=== PATIENT | female | born 1960 | race Caucasian/White ===

== ENCOUNTER → 2019-09-29 10:56 | Outpatient (BNVA) | payer BC, SELFPAY | PROVIDERS: Family Provider Nurse Practitioner; PCP Nurse Practitioner; Visit Provider Nurse Practitioner Family | DX: R53.83 Other fatigue (principal); M51.34 Other intervertebral disc degeneration, thoracic region; M50.30 Other cervical disc degeneration, unspecified cervical region; M51.9 Unspecified thoracic, thoracolumbar and lumbosacral intervertebral disc disorder; H53.8 Other visual disturbances; H53.9 Unspecified visual disturbance; M54.9 Dorsalgia, unspecified | CPT/HCPCS: 81001; 84443 ==

== ENCOUNTER 2019-10-01 12:19 | Outpatient (CLI) | payer BC, SELFPAY ==
--- NOTE | 2019-10-01 12:25 | XRR_ITS ---
PROCEDURE INFORMATION: Exam: XR Cervical Spine, 2 or 3 Views Exam date and time: 10/01/2019 12:59 PM Age: 59 years old Clinical indication: Neck pain and other: Decreased rom; Additional info: Neck pain and decreased rom. Pain between shoulders TECHNIQUE: Imaging protocol: XR of the cervical spine, 2 or 3 views. COMPARISON: No relevant prior studies available. FINDINGS: Vertebrae: Normal. No acute fracture. Normal alignment. The examination is negative for instability with flexion and extension Soft tissues: Unremarkable. XR/XR cervical spine fl/ex [id number] IMPRESSION: No acute findings. Negative for instability with flexion and extension
--- NOTE | 2019-10-01 12:25 | XRR_ITS ---
PROCEDURE INFORMATION: Exam: XR Lumbosacral Spine Complete with Flexion/Extension, 6 or More Views Exam date and time: 10/01/2019 1:10 PM Age: 59 years old Clinical indication: Low back pain; Additional info: Lumbar back pain TECHNIQUE: Imaging protocol: XR of the lumbosacral spine with flexion/extension, 6 or more views. COMPARISON: No relevant prior studies available. FINDINGS: Vertebrae: Normal. No acute fracture. Normal alignment. Negative for instability with flexion and extension maneuvers Soft tissues: Unremarkable. XR/XR lumbar spine 6V w f/e [id number] IMPRESSION: No acute findings. Negative for instability with flexion and extension
--- NOTE | 2019-10-01 12:25 | XRR_ITS ---
PROCEDURE INFORMATION: Exam: XR Thoracic Spine, 3 Views Exam date and time: 10/01/2019 1:14 PM Age: 59 years old Clinical indication: Pain in thoracic spine; Additional info: Thoracic back pain. Neck pain and between shoulders. TECHNIQUE: Imaging protocol: XR of the thoracic spine, 3 views. COMPARISON: No relevant prior studies available. FINDINGS: Vertebrae: Normal. No acute fracture. Normal alignment. Soft tissues: Unremarkable. XR/XR thoracic spine 3V* [id number] IMPRESSION: No acute findings.
== END 2019-10-01 12:20 | disposition home or self-care (01) ==
PROVIDERS: PCP Nurse Practitioner Family; Visit Provider Nurse Practitioner Family
DX: M54.9 Dorsalgia, unspecified (principal)
CPT/HCPCS: 72040; 72072; 72114

== ENCOUNTER 2019-11-26 06:00 | Outpatient (RCR) | payer BC, SELFPAY | END 2019-12-08 23:59 | disposition home or self-care (01) | LOC: WPT 06:00 | PROVIDERS: PCP Physician Assistant Medical; Referring Provider Nurse Practitioner Family; Visit Provider Nurse Practitioner Family | DX: M54.16 Radiculopathy, lumbar region (principal) | CPT/HCPCS: 97110; 97140; 97161 ==

== ENCOUNTER 2019-12-09 06:00 | Outpatient (RCR) | payer BC, SELFPAY | END 2020-01-07 23:59 | disposition home or self-care (01) | LOC: WPT 06:00 | PROVIDERS: PCP Physician Assistant Medical; Referring Provider Nurse Practitioner Family; Visit Provider Nurse Practitioner Family | DX: M54.16 Radiculopathy, lumbar region (principal) | CPT/HCPCS: 97110 ==

== ENCOUNTER 2024-05-14 10:00 | Outpatient (CLI) | payer OTHER, SELFPAY ==
--- NOTE | 2024-05-14 10:00 | MM_ITS ---
WS: [id number] Bilateral screening 3D tomosynthesis digital mammogram, 05/14/2024 10:06 AM Clinical Data: SCREENING Comparison: None. Findings: No spiculated masses or clustered calcifications are seen. There are no secondary signs of carcinoma. MM/MM scr BI tomosynthesis [id number] Impression: Negative bilateral mammogram with no prior exam for review. Recommend annual screening mammograms. BIRADS: 1 - Negative. FOLLOW UP: 1 Year Follow-up DENSITY: There are scattered areas of fibroglandular density. The CAD aircraft delivery checker was used
== END 2024-05-14 10:01 | disposition home or self-care (01) ==
LOC: MOBLMAM 10:02
PROVIDERS: PCP Nurse Practitioner; Visit Provider Nurse Practitioner
DX: Z12.31 Encounter for screening mammogram for malignant neoplasm of breast (principal); R92.323 Mammographic fibroglandular density, bilateral breasts
CPT/HCPCS: 77063; 77067

== ENCOUNTER 2024-11-04 08:30 | Outpatient (CLI) | payer OTHER, SELFPAY ==
--- NOTE | 2024-11-04 08:30 | CT_ITS ---
WS: [id number] CT chest wo con [id number] HISTORY: S22.42XA - Multiple fractures of ribs, left side, initial... TECHNIQUE: Axial imaging performed through the thorax. Coronal and sagittal reformats are submitted. All CT scans at [facility] use at least one of these dose optimization techniques: automated exposure control; mA and/or kV adjustment per patient size (includes targeted exams where dose is matched to clinical indication); or iterative reconstruction. CONTRAST: None DLP: 293.83 mGy.cm COMPARISON: None available. Lungs and central airway: Linear subsegmental atelectasis RIGHT lower lobe. Thin bandlike areas of atelectasis. No pulmonary contusion or pneumothorax. 2 mm micronodule LEFT lower lobe, image 33 series 5. No endobronchial lesions. No mass or pneumonia. Pleura: Mild pleural thickening along the posterior inferior thorax. Tiny amount of air encased within the fluid. This could potentially represent a contained tiny pneumothorax or tiny pulmonary contusion/laceration. Heart and pericardium: Normal size heart with no pericardial effusion. Mediastinum and nicolle: Small mediastinal and hilar lymph nodes. No pathologically enlarged lymph nodes. No axillary lymph nodes. Vessels: Normal size aortic and pulmonary artery. No coronary artery calcifications. Chest wall and lower neck: No soft tissue masses. Upper abdomen: Small hiatal hernia. Numerous scattered areas of decreased attenuation throughout the liver. These range in size from a few millimeters to 11 mm. The largest is in the inferior RIGHT lobe of the liver. Spleen is normal size. No adrenal mass. Visualized pancreas is normal. Normal gallbladder. Osseous structures: Left-sided rib fractures: Lateral eighth through 11th ribs. Nondisplaced fractures partially healed. Additional posterior medial fractures involving the ninth through 11th and possibly the 12th ribs. Partially healed without displacement. Nondisplaced fracture with partial healing involving LEFT transverse process of T11. Possible fracture involving LEFT L1 transverse process. Additional nondisplaced fracture involving LEFT L2 transverse process. CT/CT chest wo con [id number] IMPRESSION: 1. Small amount of pleural thickening along the posterior inferior LEFT thorax . There is a very small amount of air contained within the pleural thickening w hich could potentially represent a tiny pneumothorax or contusion laceration of the lung. There is no large pneumothorax. 2. Left-sided rib fractures including the lateral 8th through 11th ribs and th e posterior medial 9th through 11th ribs and possibly the 12th rib. By definiti on this does represent a flail chest. There is no displacement of the ribs. Michael e of these rib fractures demonstrate partial healing. 3. Nondisplaced fractures LEFT transverse process of T11, L2 and possibly L1.
== END 2024-11-04 08:31 | disposition home or self-care (01) ==
LOC: RAD 08:30
PROVIDERS: PCP Family Medicine; Visit Provider Family Medicine
DX: S22.42XA Multiple fractures of ribs, left side, initial encounter for closed fracture (principal); X58.XXXA Exposure to other specified factors, initial encounter
CPT/HCPCS: 71250

== ENCOUNTER → 2024-12-24 16:15 | Outpatient (BNVA) | payer OTHER, SELFPAY | PROVIDERS: PCP Family Medicine; Visit Provider Nurse Practitioner Family | DX: S62.511A Displaced fracture of proximal phalanx of right thumb, initial encounter for closed fracture (principal); X58.XXXA Exposure to other specified factors, initial encounter | CPT/HCPCS: 73140 ==

== ENCOUNTER → 2024-12-30 15:32 | Outpatient (BNVA) | payer OTHER, SELFPAY | PROVIDERS: PCP Family Medicine; Visit Provider Student in an Organized Health Care Education/Training Program | DX: S62.511A Displaced fracture of proximal phalanx of right thumb, initial encounter for closed fracture (principal); S67.01XA Crushing injury of right thumb, initial encounter; W23.0XXA Caught, crushed, jammed, or pinched between moving objects, initial encounter | CPT/HCPCS: 73130 ==

== ENCOUNTER 2025-01-01 08:44 | Day surgery (SDC) | payer OTHER, SELFPAY ==
[2025-01-01] VITALS (10 sets, daily range): BP systolic 117–144; BP diastolic 66–99; PULSE 57–74; RESP 16; TEMP 36.1–36.6; O2SAT 96–99; BMI 22.8
[2025-01-01] MEDS: acetaminophen 1,000 MG/100 ML PIGGYBACK 400 MG IV (09:27)
--- NOTE | 2025-01-01 09:31 | W.PM.OPSUD ---
Surgery/Procedure H&P Update DATE OF PROCEDURE: January 01, 2025 DATE H&P PERFORMED: 12/30/24 H&P UPDATE INFORMATION: I have reviewed H&P completed within last 30 days, I have examined patient prior to procedure and No changes to prior documentation PREOP DIAGNOSIS: Displaced and angulated right thumb proximal phalanx fracture PRIMARY INDICATION FOR PROCEDURE: Displaced and angulated right thumb proximal phalanx fracture PLANNED PROCEDURE: Operation Date: 01/01/25 11:05 Proposed Procedures p RIGHT Thumb Proximal PhalanxClosed Reduction vs Open Reduction Internal FIxation(Right) - Hal Ybarra DO s RIGHT THumb Phalanx Percutaneous Pinning Thumb(Right) - Hal Ybarra DO
--- NOTE | 2025-01-01 09:40 | ANES.PREANE2 ---
Pre-Anesthetic Assessment Height/Weight: Height 1.73 m Weight 68.039 kg Temp Pulse Resp BP Pulse Ox O2 Del Method 97 F L 57 L 16 122/67 99 Room Air 01/01/25 09:04 01/01/25 09:04 01/01/25 09:04 01/01/25 09:04 01/01/25 09:04 01/01/25 09:04 Preop Diagnosis: Displaced and angulated right thumb proximal phalanx fracture Operation Date: 01/01/25 11:05 Proposed Procedures p RIGHT Thumb Proximal PhalanxClosed Reduction vs Open Reduction Internal FIxation(Right) - Hal Ybarra DO s RIGHT THumb Phalanx Percutaneous Pinning Thumb(Right) - Hal Ybarra DO Familial anesthetic complications: None Was Beta Nick taken within 24 hours: N/A Was Clonidine taken within 24 hours: N/A Last intake: Intake Last Liquid Date 12/31/24 Last Liquid Time 11:30 Last Solid Date 12/31/24 Last Solid Time 11:30 Social No alcohol and No tobacco Exam alert, oriented x 3, clear to auscultation bilaterally and regular rate & rhythm Airway Mallampati: Class I Dentition: false Anesthetic Plan ASA status: 1 Anesthesia: General Risk of > 500 ml blood loss (7ml/kg in children): No Medications/Allergies Home Medications ?Medication ?Instructions ?Recorded ?Confirmed ?Last Taken ?Type No Known Home Medications 11/06/24 01/01/25 Unknown History Allergies Allergy/AdvReac Type Severity Reaction Status Date / Time No Known Allergies Allergy Verified 01/01/25 08:59 Current Medications Generic Name Dose Route Start Last Admin Trade Name Dennisq PRN Reason Stop Dose Admin Sodium Chloride 1,000 mls @ 30 mls/hr 01/01/25 09:00 01/01/25 09:17 Sodium Chloride 0.9% IV 01/02/25 08:59 30 mls/hr .Q24H JOSHUA Administration PFSH Anesthesia Medical History Closed displaced fracture of proximal phalanx of right thumb, initial encounter Crushing injury of right thumb, initial encounter Blurred vision, bilateral Unilateral visual loss Thoracic degenerative disc disease Lumbar disc disease DDD (degenerative disc disease), cervical Environmental and seasonal allergies Social History Smoking and tobacco/nicotine status: former use of tobacco/nicotine Alcohol intake: never Substance/Drug Use: never
[2025-01-01] MEDS: ceFAZolin 2,000 MG in sodium chloride 0.9% (plus) 50 ML 100 MG IV (10:12)
[2025-01-01] MEDS: ROPivacaine 0.5% SDV 30 mL 15 MG INJECTION (10:56)
--- NOTE | 2025-01-01 11:56 | P.BOP_ITS ---
Date of Procedure: 01/01/2025 Surgeon: Hal Ybarra DO Medicaid Eligibility Specialist(s): None Procedure(s) performed: Right thumb proximal phalanx open reduction internal fixation Findings of the procedure(s): Underwent procedure as planned without issues or complications Estimated blood loss: 5 mL Specimen(s) removed: None Post-operative diagnosis: Right thumb proximal phalanx fracture displaced and angulated
--- NOTE | 2025-01-01 11:57 | P.OP_ITS ---
Operative Report Date of procedure: January 01, 2025 Pre-op diagnosis: Right thumb proximal phalanx fracture displaced and angulated Post-op diagnosis: Same Post-op findings: See operative report narrative Procedure done: Right thumb proximal phalanx open reduction internal fixation Implants: Arthrex 1.6 T locking plate with a combination of locking and nonlocking screws Surgeon: Hal Ybarra DO Professional Bondsman: None Anesthesia: General and Local Estimated blood loss: 5 mL 67 minutes IV fluids: 1100 mL Urine output: None Complications: None Findings: See operative report narrative Condition: stable Disposition: same day Brief History: Patient at this point in time seen evaluated in the outpatient setting has a displaced right thumb proximal phalanx fracture that was angulated displaced significant stiffness of the joints of the IP and MP joints of the right thumb this fracture is roughly 3 to 4 weeks out. At this point in time we talked about her treatment options in detail she originally had delayed her care today as she thought this would get better on its own at this standpoint talked about her options in detail as far as nonoperative operative invention through shared decision making elects to proceed with surgical intervention for a right thumb proximal phalanx closed reduction percutaneous pinning versus open reduction internal fixation. Patient understands risk benefits complication alternatives surgical nonsurgical treatment options. Understand risk of surgery patient will proceed with surgical intervention all questions answered at this time. Procedure: Patient was seen eval in the preoperative holding area. Consent was reviewed and signed with patient. Correct extremities and subsequently marked/right thumb. Patient was then seen by by seizure was cleared for surgery patient was taken back to the operative suite kept on [facility] and armboard applied to the right upper extremity. Patient patient then underwent anesthesia per the anesthesia department. Patient well-padded and appropriate secured to the bed. Nonsterile tourniquet applied to the right upper extremity. Final timeout performed. Patient seen appropriate preoperative antibiotics. Esmarch tourniquet was used exsanguinate the right upper extremity tourniquet was insufflated to 150 mmHg. At this point, brought in the fluoroscopic imaging to evaluate the right thumb proximal phalanx fracture. Multiple attempts at closed reduction was performed at this appeared to already be scarred into place and was unable to achieve any type of reduction under closed manipulation as result plan was for open procedure. I then subsequently made a direct lateral approach centering over the proximal phalanx of the right thumb this was made on the radial aspect of the thumb. Sharp scalpel incision was made through skin and then switched to Littler dissection scissors through subcutaneous tissue dissected out neurovascular bundle was protected throughout the procedure. I then identified the extensor mechanism and stayed inferior and mobilized this subperiosteally and my personnel assistant protecting the tendon throughout the procedure. At this point in time I came directly onto the bone there was early fracture callus impeding the reduction as well as fracture mobility has subsequently cleared out the fracture site with curette dental pick and a rongeur as well as a [place] and was able to clear off the fracture edges in order to achieve a reduction. Once this was satisfied I was then able to perform a reduction maneuver and I utilized a K wire pin to hold this into place. Once I satisfied with the reduction I then took fluoroscopic imaging to confirm satisfactory reduction and then selected a 1.6 Arthrex mini CFS plate. I cohn bsequently had to remove a couple holes to get this to size. I subsequently utilized the plate benders to contour this to the bone. At this point in time I used the T plate for the proximal base to get 2 points of fixation as this was unable to achieve getting any more screws due to the more proximal fracture pattern. At this point time the T plate was placed just proximal to the collaterals as well as distally was care was taken to remain out of collaterals as well and curved this slightly superiorly. At this point in time I utilized a beaded pin to pin this up against the bone and then subsequently did a compressive screw cortical proximally and distally to secure the plate to bone and contoured to bone while maintaining reduction once I satisfied this I subsequently placed additional cortical screws distally as well as then placed locking screws around the rest of the plate to increase fixation and construct strength. I then subsequently utilized and switched out the cortical screw proximally and switched to still locking screw as well. This was all done under fluoroscopic imaging and had satisfactory reduction. Excellent fixation I took the thumb through range of motion had satisfactory stable fixation. I then did utilize 1 cc of DBM putty around the fracture site to encourage healing. This point gently took the finger through range of motion and the fracture was ex cellent and stable. This point time tourniquet deflated hemostasis satisfactory thorough irrigation performed and then closed this with Monocryl to close the fascia over the plate and then subsequently closed the incision with nylon suture. This was then dressed with Xeroform 4 x 4's Curlex ABD and thumb spica splint was applied. Patient Toller procedure well without issue or complication taken recovery in stable condition. Disposition: Patient taken to recovery in stable condition receive appropriate discharge structures as well as pain medication postoperatively. Patient will be maintain splint until follow-up strict none weightbearing to the operative hand. Patient understands agrees current plan. Questions answered.
[2025-01-01] MEDS: HYDROcodone-acetaminophen 5-325 mg Tablet 1 TAB PO (13:12)
--- NOTE | 2025-01-01 13:36 | ANE.PACU2 ---
Inpatient post-anesthesia follow up: Airway intact: Yes Vital signs: Temperature 98 F Pulse Rate 58 Respiratory Rate 16 Blood Pressure 144/84 Pulse Oximetry 98 Oxygen Delivery Me thod Room Air Oxygen Flow Rate Fraction of Inspir ed Oxygen Hydration adequate: Yes Nausea and vomiting: No Pain level: 1 Mental status: Baseline
== END 2025-01-01 13:36 | disposition home or self-care (01) ==
PROVIDERS: PCP Family Medicine; Visit Provider Student in an Organized Health Care Education/Training Program
PROC: (CPT 26735; 2025-01-01 11:05)
DX: S62.511A Displaced fracture of proximal phalanx of right thumb, initial encounter for closed fracture (principal); W23.1XXA Caught, crushed, jammed, or pinched between stationary objects, initial encounter; Z87.891 Personal history of nicotine dependence
CPT/HCPCS: 26735; C1713; C1734; J0131; J0690; J1100; J1885; J2405; J2704; J2795; J3010; J7030; J9999

== ENCOUNTER → 2025-01-16 09:47 | Outpatient (BNVA) | payer OTHER, SELFPAY | PROVIDERS: PCP Family Medicine; Visit Provider Physician Assistant | DX: S62.511D Displaced fracture of proximal phalanx of right thumb, subsequent encounter for fracture with routine healing (principal); X58.XXXD Exposure to other specified factors, subsequent encounter | CPT/HCPCS: 73130 ==

== ENCOUNTER 2025-01-16 10:17 | Outpatient (CLI) | payer OTHER, SELFPAY | END 2025-01-16 10:18 | disposition home or self-care (01) | LOC: SPT 10:18 | PROVIDERS: PCP Family Medicine; Visit Provider Physician Assistant | DX: Z47.89 Encounter for other orthopedic aftercare (principal); S62.511D Displaced fracture of proximal phalanx of right thumb, subsequent encounter for fracture with routine healing; S67.01XD Crushing injury of right thumb, subsequent encounter; X58.XXXD Exposure to other specified factors, subsequent encounter | CPT/HCPCS: L3809 ==

== ENCOUNTER → 2025-01-28 09:18 | Outpatient (BNVA) | payer OTHER, SELFPAY | PROVIDERS: PCP Family Medicine; Visit Provider Physician Assistant | DX: Z98.890 Other specified postprocedural states (principal) | CPT/HCPCS: 73130 ==

== ENCOUNTER 2025-02-03 09:55 | Outpatient (RCR) | payer OTHER, SELFPAY | END 2025-02-06 23:59 | disposition home or self-care (01) | LOC: SOT 09:55 | PROVIDERS: PCP Family Medicine; Visit Provider Physician Assistant | DX: M79.644 Pain in right finger(s) (principal); G89.29 Other chronic pain | CPT/HCPCS: 97022; 97110; 97140; 97165 ==

== ENCOUNTER 2025-02-07 05:00 | Outpatient (RCR) | payer OTHER, SELFPAY | END 2025-03-08 23:59 | disposition home or self-care (01) | LOC: SOT 05:00 | PROVIDERS: PCP Family Medicine; Visit Provider Physician Assistant | DX: M79.644 Pain in right finger(s) (principal); G89.29 Other chronic pain | CPT/HCPCS: 97022; 97110; 97140 ==

== ENCOUNTER → 2025-02-11 09:26 | Outpatient (BNVA) | payer OTHER, SELFPAY | PROVIDERS: PCP Family Medicine; Visit Provider Physician Assistant | DX: S62.511A Displaced fracture of proximal phalanx of right thumb, initial encounter for closed fracture (principal); S67.01XA Crushing injury of right thumb, initial encounter; X58.XXXA Exposure to other specified factors, initial encounter | CPT/HCPCS: 73130 ==

== ENCOUNTER → 2025-03-10 08:59 | Outpatient (BNVA) | payer OTHER, SELFPAY | PROVIDERS: PCP Family Medicine; Visit Provider Physician Assistant | DX: Z98.890 Other specified postprocedural states (principal) | CPT/HCPCS: 73130 ==